=== PATIENT | female | born 1975 | race Native Hawaiian/Other Pacific Islander ===

== ENCOUNTER 2016-08-05 08:30 | Day surgery (SDC) | payer BC ==
[2016-08-05] MEDS ORDERED: PROPOFOL 10 MG/ML VIAL IV ONE (14:00)
[2016-08-05] MEDS ORDERED: LIDOCAINE 2% MDV (20MG/ML) 20ML VIAL IV ONE (14:00)
[2016-08-05] MEDS ORDERED: MIDAZOLAM HCL 2MG/2ML VIAL IV ONE (14:00)
--- NOTE | 2016-08-08 16:20 | Operative Note ---
DATE OF SURGERY: 08/05/2016 OPERATION: COLONOSCOPY to the cecum with cold biopsy forceps polypectomy x3. INDICATION: Prior history of colon polyps (hyperplastic), family history of colon cancer (uncle). Colonoscopy was performed at this time for further evaluation. ANESTHESIA: Intravenous sedation was administered by the department of anesthesiology and included Diprivan titrated to effect. PROCEDURE: Following informed consent from this alert individual including a discussion of the risks and benefits of the procedure and an opportunity for the patient to ask questions, the patient was in the left lateral decubitus position. A digital rectal examination was performed. No abnormalities were noted. Following this, the Olympus [id number] video colonoscope was inserted into the rectum without resistance. The rectal mucosa had a normal appearance with normal folds and distensibility. The colonoscope was advanced up through the colon to the level of the cecum without much difficulty. Throughout the bowel the mucosa appeared normal, the folds were normal, and the bowel was fairly well distensible. The cecum was defined by noting the appendiceal orifice and ileocecal valve. Colon preparation was good. Retroflexion in the cecum was unremarkable. The colonoscope was then slowly withdrawn back through the bowel, reexamining the mucosa upon withdrawal. At the hepatic flexure, there was a sessile 3 mm polyp noted which was removed with cold biopsy forceps. There were 2 additional polyps in the sigmoid colon each measuring 3 mm in size likewise removed with biopsy forceps. No other changes were appreciated. Retroflexion in the rectum did demonstrate small internal hemorrhoids. The endoscope was straightened and removed. The patient tolerated the procedure well and was returned to the recovery area in stable condition. IMPRESSION: 1. Three colon polyps removed as described above from the hepatic flexure and sigmoid colon. 2. Small internal hemorrhoids. RECOMMENDATIONS: The patient was she should receive a copy of her pathology report at home in the next 2-3 weeks. If not, she was asked to call my office to review the results of testing today. Followup will also be with her primary care physician. As always, thank you for allowing me to participate in the care of your patient. Chon Stevenson DO CC: Dr. Eunice ROCHA
== END 2016-08-05 10:32 | disposition home or self-care (01) ==
LOC: MERGE 08:30 → HOP 08:30
PROVIDERS: ATTEND Internal Medicine Gastroenterology
DX: Z12.11 Encounter for screening for malignant neoplasm of colon (principal); D12.3 Benign neoplasm of transverse colon; K63.5 Polyp of colon; Z86.010 Personal history of colon polyps
CPT/HCPCS: 81025